=== PATIENT | male | born 1950 | race Native Hawaiian/Other Pacific Islander ===

== ENCOUNTER 2016-06-10 13:46 | Outpatient (CLI) | payer OTHER, BC | END 2016-06-10 23:38 | disposition home or self-care (01) | LOC: RAD 13:46 | DX: M25.511 Pain in right shoulder (principal) ==

== ENCOUNTER 2017-02-05 11:09 | Outpatient (CLI) | payer OTHER, BC ==
[2017-02-05 11:21] LABS: PLATELET COUNT 180 K/uL (142-355)
[2017-02-05 11:54] LABS: SODIUM 138 mmol/L (136-145)
== END 2017-02-05 21:57 | disposition home or self-care (01) ==
LOC: LAB 11:09
PROVIDERS: Internal Medicine
DX: E11.9 Type 2 diabetes mellitus without complications (principal); Z12.5 Encounter for screening for malignant neoplasm of prostate
CPT/HCPCS: 80053; 80061; 81000; 83036; 84153; 84443; 85027

== ENCOUNTER 2017-02-23 10:16 | Outpatient (CLI) | payer OTHER, BC | END 2017-02-23 18:58 | disposition home or self-care (01) | LOC: RAD 10:16 | DX: I10 Essential (primary) hypertension (principal) ==